=== PATIENT | male | born 1990 | race Caucasian/White ===

== ENCOUNTER 2018-06-21 17:53 | Emergency (ER) | payer MEDICAID, OTHER ==
[2018-06-21] MEDS ORDERED: METOCLOPRAMIDE 10 MG/2 ML VIAL IVP ONE (18:07)
[2018-06-21] MEDS ORDERED: DEXAMETHASONE 4 MG/ML VIAL IVP ONE (18:07)
[2018-06-21] MEDS ORDERED: MECLIZINE HCL 25 MG TAB PO ONE (18:07)
[2018-06-21] MEDS ORDERED: NS 1,000 ML IV ONE (18:29)
== END 2018-06-21 19:45 | disposition home or self-care (01) ==
DX: H81.10 Benign paroxysmal vertigo, unspecified ear (principal); F32.9 Major depressive disorder, single episode, unspecified; E86.9 Volume depletion, unspecified; G89.4 Chronic pain syndrome; M42.00 Juvenile osteochondrosis of spine, site unspecified